=== PATIENT | female | born 1970 | race Two or more races ===

== ENCOUNTER 2017-07-20 14:34 | Emergency (ER) | payer OTHER ==
[2017-07-20] MEDS ORDERED: ACETAMINOPHEN 325 MG TABLET (FP) PO ONE (14:53)
--- NOTE | 2017-07-20 14:53 | PDOC ---
Rapid Medical Evaluation Time Seen by Provider: 07/20/17 14:52 Medical Evaluation: Allergies Allergy/AdvReac Type Severity Reaction Status Date / Time sitagliptin phosphate Allergy Intermediate DIZZY Verified 09/18/15 10:00 [From Cookie] 07/20/17 14:52 I have performed a brief in person evaluation of this patient. The patient presents with chief complaint of : fever, body aches 4 days . HX DM , HTN, high cholesterol Pertinent PE findings: none I have ordered the following: tylenol 650mg The patient will proceed to the ER for further evaluation.
[2017-07-20 14:58] VITALS: BP 130/90; PULSE 113; TEMP 99.7; BMI 26.5
[2017-07-20] MEDS ORDERED: ACETAMINOPHEN 325 MG TABLET (FP) ONE (15:30)
--- NOTE | 2017-07-20 15:55 | PDOC ---
History of Present Illness - General Chief Complaint: Cold Symptoms Stated Complaint: FLU LIKE SYMPTOMS Time Seen by Provider: 07/20/17 14:52 History Source: Patient Exam Limitations: No Limitations - History of Present Illness Initial Comments: 07/20/17 15:57 Acute onset of, chills, fevers, moist nonproductive cough, generalized body aches since yesterday. States is progressively worsening. Son was diagnosed with influenza a few days ago. Timing/Duration: reports: getting worse Severity: reports: mild, moderate Past History - Travel Traveled outside of the country in the last 30 days: No Close contact w/someone who was outside of country & ill: No - Past Medical History Allergies/Adverse Reactions: Allergies Allergy/AdvReac Type Severity Reaction Status Date / Time sitagliptin phosphate Allergy Intermediate DIZZY Verified 07/20/17 14:55 [From Cookie] Home Medications: Ambulatory Orders Metformin HCl [Glucophage] 850 mg PO BID 08/16/11 Ibuprofen 400 mg PO Q6H PRN #30 tablet 07/20/17 Oseltamivir Phosphate [Tamiflu -] 75 mg PO BID #10 capsule 07/20/17 Anemia: No Asthma: No Cancer: No Cardiac Disorders: No CVA: No COPD: No CHF: No Dementia: No Diabetes: Yes GI Disorders: No Disorders: No HTN: No Hypercholesterolemia: No Liver Disease: No Seizures: No Thyroid Disease: No - Surgical History Abdominal Surgery: Yes - Suicide/Smoking/Psychosocial Hx Smoking Status: Yes Smoking History: Never smoked Have you smoked in the past 12 months: No Number of Cigarettes Smoked Daily: 0 Information on smoking cessation initiated: No Hx Alcohol Use: No Drug/Substance Use Hx: No Substance Use Type: None Review of Systems - Review of Systems Able to Perform ROS?: Yes Is the patient limited Kiswahili proficient: Yes Constitutional: Yes: Symptoms Reported, See HPI, Chills, Fever, Loss of Appetite , Malaise, Weakness HEENTM: Yes: Symptoms Reported, Nose Congestion, Throat Pain, Difficulty Swallowing Respiratory: Yes: Symptoms reported, See HPI, Cough ABD/GI: No: Symptoms Reported Musculoskeletal: Yes: Symptoms Reported, See HPI, Joint Pain, Muscle Weakness All Other Systems: Reviewed and Negative *Physical Exam - Vital Signs Last Vital Signs Temp Pulse Resp BP Pulse Ox 99.7 F H 113 H 18 130/90 100 07/20/17 14:55 07/20/17 14:55 07/20/17 14:55 07/20/17 14:55 07/20/17 14:55 - Physical Exam Comments: 07/20/17 15:58 GENERAL: [The child is awake, alert, and appropriately interactive.] EYES: [The pupils are equal, round, and reactive to light, with clear, conjunctiva.but glassy] NOSE: [The nose with clear drainage EARS: [The ear canals and tympanic membranes are congested but landmarks easily visualed ] THROAT: [The oropharynx is clear with erythema, no exudates. The mucous membranes are moist.] NECK: [The neck is supple with mildly tender adenopathy, no menigemous] CHEST: [The lungs are coarse but clear without crackles, or wheezes.] HEART: [Heart is regular rhythm, with normal S1 and S2, no murmurs.] ABDOMEN: [The abdomen is soft and nontender with normal bowel sounds. There is no organomegaly and no mass. There is no guarding or rebound.] EXTREMITIES: [Extremities are normal.] NEURO: [Behavior is normal for age.cranky but easily,m Tone is normal.] SKIN: [Skin is unremarkable without rash or swelling. There is no bruising, and there are no other signs of injury.] General Appearance: Yes: Nourished, Appropriately Dressed, Apparent Distress, Moderate Distress ED Treatment Course - Medications Given in the ED: ED Medications Discontinued Medications Generic Name Dose Route Start Last Admin Trade Name Freq PRN Reason Stop Dose Admin Acetaminophen 650 mg 07/20/17 14:53 07/20/17 15:31 Tylenol - PO 07/20/17 14:54 650 mg ONCE ONE Administration Progress Note - Progress Note Progress Note: Upper respiratory infection, probable influenza and within window for Tamiflu treatment. *DC/Admit/Observation/Transfer Diagnosis at time of Disposition: Influenzal acute upper respiratory infection - Discharge Dispostion Disposition: HOME Condition at time of disposition: Stable Admit: No - Referrals Referrals: Ronda Rodriguez MD [Primary Care Provider] - - Patient Instructions Printed Discharge Instructions: DI for Viral Upper Respiratory Infection -- Adult Additional Instructions: Rest, drink lots of fluids: Teas, water, soups, Pedialyte Saltwater gargles Steamy showers/seem to face break up mucus Old-fashioned treatments help! Avoid contact with others until fevers and cough resolved as this is very contagious Lots of handwashing and good hygiene Continue [id number] medications for symptomatic relief Tylenol or Motrin for fever and pain Take all of Tamiflu as directed: 1 tab every 12 hours for 5 days Followup with private physician in one to 2 days as needed or if worsening Return to emergency department for worsened symptoms, fevers, dehydration Influenza takes between 5 and 7 days for resolution To not participate in any activity, work, or school until fevers and cough are gone for at least one day - Post Discharge Activity Forms/Work/School Notes: Back to Work
== END 2017-07-20 15:57 | disposition home or self-care (01) ==
LOC: JERFT 14:34
DX: J11.1 Influenza due to unidentified influenza virus with other respiratory manifestations (principal)
CPT/HCPCS: 99281-25

== ENCOUNTER 2021-02-08 15:31 | Emergency (ER) | payer OTHER ==
[2021-02-08 15:40] VITALS: BP 124/79; PULSE 89; TEMP 98; BMI 29.2
[2021-02-08] MEDS ORDERED: ACETAMINOPHEN 1000 MG/100 ML VIAL (NON FORMULARY) IVPB ONE (17:06)
[2021-02-08] MEDS ORDERED: KETOROLAC TROMETHAMINE 30 MG/1 ML VIAL IM ONE (17:13)
[2021-02-08] MEDS ORDERED: ACETAMINOPHEN INJECTION 100 ML IVPB ONE (17:18)
[2021-02-08] MEDS ORDERED: KETOROLAC TROMETHAMINE 30 MG/1 ML VIAL ONE (18:02)
[2021-02-08 18:37] LABS: BASO % 0.2 % (0-2.0); EOS % 0.9 % (0-4.5); HEMATOCRIT 35.6 % (32.4-45.2); HEMOGLOBIN 11.8 GM/dL (10.7-15.3); MCH 29.1 pg (25.7-33.7); MCHC 33.2 g/dl (32.0-36.0); MEAN CELL VOLUME 87.8 fl (80-96); MEAN PLT VOLUME 8.9 fl (7.5-11.1); MONO % 5.8 % (3.8-10.2); NEUT % 67.1 % (42.8-82.8); PLATELET COUNT 280 10^3/uL (134-434); RBC 4.06 M/mm3 (3.60-5.2); RDW 13.9 % (11.6-15.6); WHITE BLOOD COUNT 9.9 K/mm3 (4.0-10.0)
[2021-02-08 18:59] LABS: CHLORIDE 101 mmol/L (98-107); SODIUM 137 mmol/L (136-145)
[2021-02-08 19:01] LABS: CALCIUM 9.6 mg/dL (8.5-10.1)
[2021-02-08 19:02] LABS: ALBUMIN 3.6 g/dl (3.4-5.0); ANION GAP 9 MMOL/L (8-16); BLOOD UREA NITROGEN 25.3 mg/dL (7-18); CO2 27 mmol/L (21-32); GLUCOSE,RANDOM 138 mg/dL (74-106); LIPASE 137 U/L (73-393)
[2021-02-08 19:05] LABS: CREATININE 0.7 mg/dL (0.55-1.3); SGOT/AST 17 U/L (15-37); SGPT/ALT 25 U/L (13-61)
[2021-02-08 19:08] LABS: ALK PHOS 106 U/L (45-117); BILIRUBIN,TOTAL 0.2 mg/dL (0.2-1); TOT PROT 7.5 g/dl (6.4-8.2)
[2021-02-08] MEDS ORDERED: SODIUM CHLORIDE 0.9% 500 ML INFUS.BAG IV ONE (19:15)
[2021-02-08 20:12] LABS: HCG,QUALITATIVE URINE Negative
[2021-02-08 20:28] LABS: EPI CELLS 2 /uL (0-25.1); HYALINE CASTS 0 /uL (0-3.1); URINE APPEARANCE CLOUDY; URINE BACTERIA 2240 /uL (0-1359); URINE BILIRUBIN NEGATIVE (NEGATIVE); URINE COLOR YELLOW; URINE GLUCOSE (UA) NEGATIVE (NEGATIVE); URINE KETONE TRACE (NEGATIVE); URINE LEUK ESTERASE 3+ (NEGATIVE); URINE NITRITE NEGATIVE (NEGATIVE); URINE PROTEIN 1+ (NEGATIVE); URINE RBC 19 /uL (0-23.9); URINE WBC 1684 /uL (0-25.8)
[2021-02-08] MEDS ORDERED: LIDOCAINE PATCH REMOVAL MC SCH (22:00)
[2021-02-09] MEDS ORDERED: LIDOCAINE 5% TOPICAL PATCH TP SCH (10:00)
== END 2021-02-08 21:38 | disposition home or self-care (01) ==
LOC: JER 15:31 → SUPCPDRO 15:31 → JER 21:38
PROC: 3E0333Z Introduction of Anti-inflammatory into Peripheral Vein, Percutaneous Approach (ICD-10-PCS; principal; 2021-02-08)
PROC: 3E0233Z Introduction of Anti-inflammatory into Muscle, Percutaneous Approach (ICD-10-PCS; 2021-02-08)
DX: R07.81 Pleurodynia (principal)
CPT/HCPCS: 36415; 71046-TC-FY; 71275-TC; 80053; 81003; 82550; 83690; 84484; 84703; 85025; 85379; 93005; 93010; 99285-25; J0131; Q9967

== ENCOUNTER 2021-03-13 08:46 | Emergency (ER) | payer OTHER ==
[2021-03-13 09:01] VITALS: BP 134/69; PULSE 86; TEMP 98; BMI 29.2
[2021-03-13] MEDS ORDERED: KETOROLAC TROMETHAMINE 30 MG/1 ML VIAL IM ONE (09:37)
[2021-03-13] MEDS ORDERED: LIDOCAINE 1%/EPI 1:100000 (20 ML MULTI DOSE VIAL) IJ ONE (09:37)
[2021-03-13] MEDS ORDERED: KETOROLAC TROMETHAMINE 60 MG/2 ML VIAL ONE (10:14)
== END 2021-03-13 10:21 | disposition home or self-care (01) ==
LOC: JERFT 08:46
PROC: 0H9KXZZ Drainage of Right Lower Leg Skin, External Approach (ICD-10-PCS; principal; 2021-03-13)
PROC: 0U9MXZZ Drainage of Vulva, External Approach (ICD-10-PCS; 2021-03-13)
PROC: 3E0233Z Introduction of Anti-inflammatory into Muscle, Percutaneous Approach (ICD-10-PCS; 2021-03-13)
DX: L02.415 Cutaneous abscess of right lower limb (principal); N76.4 Abscess of vulva
CPT/HCPCS: 87070; 87186; 87205; 99284-25

== ENCOUNTER 2021-03-15 09:20 | Emergency (ER) | payer OTHER ==
[2021-03-15 09:27] VITALS: BP 106/70; PULSE 90; TEMP 98.3; BMI 29.2
== END 2021-03-15 12:26 | disposition home or self-care (01) ==
LOC: JERFT 09:20
PROC: 0U9MXZZ Drainage of Vulva, External Approach (ICD-10-PCS; principal; 2021-03-15)
DX: N76.4 Abscess of vulva (principal)
CPT/HCPCS: 99282-25

== ENCOUNTER 2021-03-18 09:09 | Emergency (ER) | payer OTHER ==
[2021-03-18 09:16] VITALS: BP 104/67; PULSE 79; TEMP 98.1; BMI 29.2
== END 2021-03-18 10:00 | disposition home or self-care (01) ==
LOC: JERFT 09:09
DX: Z48.00 Encounter for change or removal of nonsurgical wound dressing (principal)
CPT/HCPCS: 99281-25

== ENCOUNTER 2022-01-24 04:04 | Day surgery (SDC) | payer OTHER ==
[2022-01-22 17:01] VITALS: BMI 26.5
[2022-01-24] MEDS ORDERED: PROPOFOL 60 ML ONE (07:27)
[2022-01-24] MEDS ORDERED: MIDAZOLAM HCL 2 MG/2 ML SINGLE DOSE VIAL ONE (07:28)
[2022-01-24] MEDS ORDERED: KETAMINE HCL 200 MG/20 ML VIAL ONE (07:28)
[2022-01-24] MEDS ORDERED: LIDOCAINE 1%/EPI 1:100000 (20 ML MULTI DOSE VIAL) ONE (07:59)
[2022-01-24] MEDS ORDERED: BUPIVACAINE HCL/PF 0.75% 10 ML VIAL ONE (07:59)
[2022-01-24] MEDS ORDERED: BUPIVACAINE HCL/PF 0.25% (2.5MG/ML) 10 ML VIAL ONE (07:59)
[2022-01-24] MEDS ORDERED: BUPIVACAINE HCL 100 ML ONE (08:18)
[2022-01-24] MEDS ORDERED: ceFAZolin SODIUM 1 GM VIAL IVPB ONE (08:25)
[2022-01-24] MEDS ORDERED: BUPIVACAINE HCL/PF 0.5% (5MG/ML) 10 ML VIAL IJ ONE (08:37)
[2022-01-24] MEDS ORDERED: ONDANSETRON 4 MG/2 ML VIAL IVPUSH PRN (08:57)
[2022-01-24 10:14] VITALS: RESP 18
[2022-01-24 10:33] VITALS: PULSE 65
[2022-01-24 11:13] VITALS: BP 108/64; TEMP 97.1
== END 2022-01-24 11:17 | disposition home or self-care (01) ==
LOC: JASU-SURG 04:04
PROVIDERS: ATTEND Surgery
PROC: 0JBC0ZX Excision of Pelvic Region Subcutaneous Tissue and Fascia, Open Approach, Diagnostic (ICD-10-PCS; principal; 2022-01-24 08:00)
DX: D17.1 Benign lipomatous neoplasm of skin and subcutaneous tissue of trunk (principal)
CPT/HCPCS: 81025; 82962; 88304-TC; 94760

== ENCOUNTER 2023-01-22 16:17 | Emergency (ER) | payer OTHER ==
[2023-01-22 16:23] VITALS: BP 100/67; PULSE 82; RESP 18; TEMP 98.1; BMI 25.2
[2023-01-22] MEDS ORDERED: FAMOTIDINE 20 MG/50 ML IVPB 20 MG/50 ML MG IVPB ONE (17:15)
[2023-01-22] MEDS ORDERED: MAG HYDROX/AL HYDROX/SIMETH 30 ML UNIT-DOSE CUP PO ONE (17:16)
[2023-01-22] MEDS ORDERED: MAG HYDROX/AL HYDROX/SIMETH 30 ML UNIT-DOSE CUP ONE (17:23)
[2023-01-22] MEDS ORDERED: FAMOTIDINE 10 MG/ML VIAL IVPB ONE (17:24)
[2023-01-22 17:48] LABS: BASO % 0.9 % (0-2.0); HEMATOCRIT 40.3 % (32.4-45.2); MCH 28.1 pg (25.7-33.7); MCHC 32.1 g/dl (32.0-36.0); MEAN CELL VOLUME 87.6 fl (80-96); MONO % 8.7 % (3.8-10.2); NEUT % 58.4 % (42.8-82.8); PLATELET COUNT 325 10^3/uL (134-434); RBC 4.61 M/mm3 (3.60-5.2); WHITE BLOOD COUNT 7.8 K/mm3 (4.0-10.0)
[2023-01-22 18:16] LABS: POTASSIUM 4.4 mmol/L (3.5-5.1)
[2023-01-22 18:18] LABS: CALCIUM 9.6 mg/dL (8.5-10.1)
[2023-01-22 18:19] LABS: ALBUMIN 3.7 g/dl (3.4-5.0); BLOOD UREA NITROGEN 22.4 mg/dL (7-18)
[2023-01-22 18:22] LABS: CREATININE 1.1 mg/dL (0.55-1.3)
[2023-01-22 18:23] LABS: TOT PROT 7.5 g/dl (6.4-8.2)
[2023-01-22 18:24] LABS: BILIRUBIN,TOTAL 0.3 mg/dL (0.2-1)
[2023-01-22] MEDS ORDERED: KETOROLAC TROMETHAMINE 30 MG/1 ML VIAL IVPUSH ONE (18:44)
[2023-01-22] MEDS ORDERED: KETOROLAC TROMETHAMINE 30 MG/1 ML VIAL ONE (19:30)
== END 2023-01-22 20:44 | disposition home or self-care (01) ==
LOC: JER 16:17
PROC: 3E033GC Introduction of Other Therapeutic Substance into Peripheral Vein, Percutaneous Approach (ICD-10-PCS; principal; 2023-01-22)
PROC: 3E0333Z Introduction of Anti-inflammatory into Peripheral Vein, Percutaneous Approach (ICD-10-PCS; 2023-01-22)
DX: R07.89 Other chest pain (principal)
CPT/HCPCS: 36415; 71046-TC-FY; 80053; 84484; 85025; 93005; 93010; 99285-25